=== PATIENT | female | born 1980 | race Caucasian/White ===

== ENCOUNTER 2016-06-22 10:25 | Emergency (ER) | payer OTHER ==
[2016-06-22 10:30] VITALS: BMI 36.9
[2016-06-22 10:32] VITALS: TEMP 97.9
[2016-06-22] MEDS ORDERED: SODIUM CHLORIDE 0.9% 10 ML FLUSH FLUSH PRN (11:57)
[2016-06-22] MEDS ORDERED: ONDANSETRON HCL 4 MG/2 ML VIAL IV ONE (12:09)
[2016-06-22] MEDS ORDERED: HYDROmorphone 1 MG INJECTION IV ONE ×2 (12:09→14:18)
[2016-06-22 12:14] LABS: MPV 8.8 fL (7.4-10.4)
[2016-06-22 12:24] LABS: BLOOD UREA NITROGEN 13 MG/DL (7-17); CALCIUM 8.9 MG/DL (8.4-10.2); CALCULATED OSMOLALITY 268 MOs/Kg (270-290); CHLORIDE 103 mEq/L (98-107); GLUCOSE 103 MG/DL (70-99); SODIUM LEVEL 139 mEq/L (137-146)
[2016-06-22 12:54] LABS: SEG NEUTROPHIL 40 % (45-76)
--- NOTE | 2016-06-22 13:31 | EDPRACDOC ---
- General Information Chief Complaint: Neck Pain Stated Complaint: NECK PAIN Time Seen by Provider: 06/22/16 11:44 Information Source: Patient Home Medications: Home Medications Cyclobenzaprine HCl [Flexeril] 10 mg PO TID #21 tab 06/22/16 Hydrocodone Bit/Acetaminophen [[place] 5-325 Tablet] 1 each PO Q4H #10 tab Prednisone [Deltasone, Orasone] 2 tabs PO DAILY #20 tab 06/22/16 Allergies/Adverse Reactions: Allergies Allergy/AdvReac Type Severity Reaction Status Date / Time levofloxacin [From Levaquin] Allergy Nausea/Vomi Verified 06/22/16 10:30 ting - History of Present Illness Onset: THU HPI: PT PRESENTS TODAY WITH LEFT LATERAL NECK PAIN AND STIFFNESS X 2 DAYS. PT STATES THAT WHEN SHE SWALLOWS, IT CAUSES SEVERE PAIN TO THE LEFT LATERAL SIDE OF THE NECK, BUT THE THROAT ITSELF DOES NOT HURT. PT DENIES JOSEPH, DIZZINESS, FEVER, CP, SHOB, ABD PAIN, N/V/D. Pain Severity: Severe Associated signs and symptoms: Reports: None ED Past Medical History - History Reviewed Yes Nurses notes reviewed and agree except as marked - Patient Medical History Psychological History: Denies: Depression Additional Past Medical History: ITP AND NEUTROPENIA Surgical History: Reports: Other (SPLEENECTOMY) - Social Medical History Smoking Status: Never smoker EDM Review of Systems - Review of Systems ROS Negative Except as Marked: Yes All systems reviewed and were negative except as marked Constitutional: No Symptoms Reported Eyes: No Symptoms Reported Ears: No Symptoms Reported Throat: No Symptoms Reported Nose: No Symptoms Reported Respiratory: No Symptoms Reported Cardiovascular: No Symptoms Reported Gastrointestinal: No Symptoms Reported Neurological: No Symptoms Reported Musculoskeletal: Neck Integumentary: No Symptoms Reported - Physical Exam Constitutional: Alert (Awake), No apparent distress Oriented to: Time, Person, Place Last recorded Vital Signs: Last Vital Signs Temp 97.9 F 06/22/16 10:29 Pulse 94 06/22/16 12:15 Resp 18 06/22/16 12:15 BP 139/70 06/22/16 12:15 Pulse Ox 96 06/22/16 12:15 Oxygen Pulse Oxygen Saturation 96 O2 Device Room Air Oxygen Flow Rate Fraction of Inspired Oxygen ( FIO2) - HEENT Head: Normal Eye Exam: Normal Oropharynx: Other (NOTED MUCUS TO POSTERIOR PHARYNX) Tympanic Membrane: Normal ENT EAC: Normal Nose: No Symptoms Reported Neck: Limited ROM, Midline, Paraspinal Tenderness - Respiratory/Cardiovascular Respiratory: Normal - CTA Cardiovascular: Normal - GI Palpation: Normal Tenderness: Non tender - Musculoskeletal Back: Normal Extremities: Normal - Integumentary Skin: Normal Lymphatics: Normal - Neurologic Cerebellar: Normal Mood Description: Normal Thought: Coherent Perception: Normal - Results 06/22/16 12:02 06/22/16 12:02 WBC 6.0 xk/uL (3.8-10.8) 06/22/16 12:02 RBC 4.68 xM/uL (4.20-5.40) 06/22/16 12:02 Hgb 13.4 g/dL (12.0-16.0) 06/22/16 12:02 Hct 40.3 % (36-47) 06/22/16 12:02 MCV 86 fL (81-99) 06/22/16 12:02 MCH 28.7 pg (27-32) 06/22/16 12:02 MCHC 33.3 g/dl (33-36) 06/22/16 12:02 RDW 13.4 % (11.5-14.5) 06/22/16 12:02 Plt Count 417 xk/uL (130-400) H 06/22/16 12:02 MPV 8.8 fL (7.4-10.4) 06/22/16 12:02 Neut % (Auto) Cancelled 06/22/16 12:02 Lymph % (Auto) Cancelled 06/22/16 12:02 Haines % (Auto) Cancelled 06/22/16 12:02 Eos % (Auto) Cancelled 06/22/16 12:02 Baso % (Auto) Cancelled 06/22/16 12:02 Absolute Neuts (auto) Cancelled 06/22/16 12:02 Absolute Lymphs (auto) Cancelled 06/22/16 12:02 Seg Neuts % (Manual) 40 % (45-76) L 06/22/16 12:02 Band Neutrophils % 8 % (0-5) H 06/22/16 12:02 Lymphocytes % (Manual) 30 % (17-44) 06/22/16 12:02 Monocytes % (Manual) 22 % (0-10) H 06/22/16 12:02 Absolute Neutrophils 2.88 xk/uL (1.7-8.2) 06/22/16 12:02 Absolute Lymphocytes 1.80 xk/uL (0.65-4.75) 06/22/16 12:02 Atypical Lymphocytes Few 06/22/16 12:02 Platelet Estimate Norm (NORMAL) Large plts present (NORMAL) 06/22/16 12: 02 Platelet Estimate Norm (NORMAL) Large plts present (NORMAL) 06/22/16 12: 02 RBC Morphology Norm 06/22/16 12:02 Sodium 139 mEq/L (137-146) 06/22/16 12:02 Potassium 3.9 mEq/L (3.5-5.1) 06/22/16 12:02 Chloride 103 mEq/L (98-107) 06/22/16 12:02 Carbon Dioxide 25 mMOL/L (22-33) 06/22/16 12:02 Anion Gap 15 mEq/L (8-16) 06/22/16 12:02 BUN 13 MG/DL (7-17) 06/22/16 12:02 Creatinine 0.70 MG/DL (0.52-1.04) 06/22/16 12:02 Estimated GFR (MDRD) > 60 mL/min (>=60) 06/22/16 12:02 Glucose 103 MG/DL (70-99) H 06/22/16 12:02 Calculated Osmolality 268 MOs/Kg (270-290) L 06/22/16 12:02 Calcium 8.9 MG/DL (8.4-10.2) 06/22/16 12:02 Total Bilirubin 0.6 MG/DL (0.2-1.3) 06/22/16 12:02 AST 18 IU/L (14-36) 06/22/16 12:02 ALT 29 IU/L (9-52) 06/22/16 12:02 Alkaline Phosphatase 97 IU/L (38-126) 06/22/16 12:02 Total Protein 8.0 G/DL (6.3-8.2) 06/22/16 12:02 Albumin 4.2 G/DL (3.5-5.0) 06/22/16 12:02 Microbiology 06/22/16 12:04 Group A Streptococcus Rapid Screen - Final Throat - Rapid Strep NEGATIVE ("NORMAL" value = "NEGATIVE".) Lab Results 06/22/16 06/22/16 12:02 12:02 WBC 6.0 RBC 4.68 Hgb 13.4 Hct 40.3 MCV 86 MCH 28.7 MCHC 33.3 RDW 13.4 Plt Count 417 H MPV 8.8 Neut % (Auto) Cancelled Lymph % (Auto) Cancelled Haines % (Auto) Cancelled Eos % (Auto) Cancelled Baso % (Auto) Cancelled Absolute Neuts (auto) Cancelled Absolute Lymphs (auto) Cancelled Seg Neuts % (Manual) 40 L Band Neutrophils % 8 H Lymphocytes % (Manual) 30 Monocytes % (Manual) 22 H Absolute Neutrophils 2.88 Absolute Lymphocytes 1.80 Atypical Lymphocytes Few Platelet Estimate Large plts present RBC Morphology Norm Sodium 139 Potassium 3.9 Chloride 103 Carbon Dioxide 25 Anion Gap 15 BUN 13 Creatinine 0.70 Estimated GFR (MDRD) > 60 Glucose 103 H Calculated Osmolality 268 L Calcium 8.9 Total Bilirubin 0.6 AST 18 ALT 29 Alkaline Phosphatase 97 Total Protein 8.0 Albumin 4.2 Decision Time to Discharge: 14:17 - Departure Disposition: Home Condition: Good Final Diagnosis: Torticollis Instructions: Spasmodic Torticollis (ED) Education/Counseling Given To: Patient Education/Counseling Given Regarding: Diagnosis, Treatment, Follow Up Referrals: Red Conte MD [Primary Care Provider] - One Week Prescriptions: Cyclobenzaprine HCl [Flexeril] 10 mg PO TID #21 tab Hydrocodone Bit/Acetaminophen [[place] 5-325 Tablet] 1 each PO Q4H #10 tab Prednisone [Deltasone, Orasone] 2 tabs PO DAILY #20 tab Additional Instructions: HEATING PADS TO AREAS OF PAIN. FOLLOW UP WITH PCP IN 2-3 DAYS IF NEEDED.
[2016-06-22] MEDS ORDERED: Pharmacy Review for Metformin - IV Contrast Given SCH (14:00)
--- NOTE | 2016-06-22 14:16 | DIRPT ---
CLINICAL DATA: Neck pain and swollen glands for 3 days. Neutropenia. Initial encounter. EXAM: CT NECK WITH CONTRAST TECHNIQUE: Multidetector CT imaging of the neck was performed using the standard protocol following the bolus administration of intravenous contrast. CONTRAST: 100 cc Isovue 370. COMPARISON: None. FINDINGS: Pharynx and larynx: Unremarkable. Salivary glands: Unremarkable. Thyroid: Unremarkable. Lymph nodes: Negative for pathologic lymphadenopathy. Vascular: Unremarkable. Limited intracranial: Unremarkable. Visualized orbits: Unremarkable. Mastoids and visualized paranasal sinuses: Mucous retention cysts or polyps are seen in the maxillary sinuses, larger on the left. Skeleton: Cervical degenerative disc disease is seen at C5-6 and C6-7 where there are disc bulges and endplate spurring. No lytic or sclerotic bony lesion is identified. Upper chest: Unremarkable. IMPRESSION: No acute abnormality or finding to explain the patient's symptoms. Mucous retention cysts or polyps the maxillary sinuses, larger on the left. Degenerative disc disease C5-6 and C6-7. Electronically Signed By: Cyrus Engle M.D. On: 06/22/2016 14:14
[2016-06-22 15:13] VITALS: BP 151/85; PULSE 106
== END 2016-06-22 14:50 | disposition home or self-care (01) ==
LOC: ED 10:25
DX: M43.6 Torticollis (principal)
CPT/HCPCS: 36415; 70491; 80053; 85007; 85027; 86308; 87880; 96374; 96375; 96376; 99284; A9698; J1170; J2405